=== PATIENT | female | born 1990 | race Two or more races ===

== ENCOUNTER 2016-11-14 15:55 | Observation (INO) | payer MEDICAID | END 2016-11-14 17:20 | disposition home or self-care (01) | DRG 566 | LOC: LDRP 15:55 | PROVIDERS: ADMIT Obstetrics & Gynecology; ATTEND Obstetrics & Gynecology | DX: O26.893 Other specified pregnancy related conditions, third trimester (principal); N13.30 Unspecified hydronephrosis; Z3A.00 Weeks of gestation of pregnancy not specified | CPT/HCPCS: 59025; 76818; 81002; G0378 ==

== ENCOUNTER 2021-12-22 16:11 | Emergency (ER) | payer MEDICAID ==
[~2021-12-22] VITALS: Ht 160 cm; Wt 91.0 kg
[~2021-12-22 16:11] MED LIST: PREN-96 PO
[2021-12-22] MEDS ORDERED: KETOROLAC TROMETH 60MG/2ML VIAL IM ONE (17:00)
[2021-12-22 17:27] VITALS: BP 146/91
== END 2021-12-22 17:32 | disposition home or self-care (01) ==
LOC: ER 16:14
DX: F41.9 Anxiety disorder, unspecified (principal)
CPT/HCPCS: 93005; 96372; 99283; J1885

== ENCOUNTER 2023-08-09 21:11 | Inpatient (IN) | payer MEDICAID ==
[~2023-08-09] VITALS: Ht 157.5 cm; Wt 97.5 kg
[2023-08-09] MEDS ORDERED: BUTORPHANOL TARTRATE 2 MG/1 ML VIAL IV PRN ×2 (21:30)
[2023-08-09] MEDS ORDERED: LIDOCAINE 2%HCL (LOCAL ANESTH.) INJ 20ML MDV IJ PRN (21:30)
[2023-08-09] MEDS: LACTATED RINGER'S 1,000 ML IV SCH (22:25)
[2023-08-09 22:31] LABS: Basophils # (auto) 0 10 ^3/uL (0-0.2); Basophils % (auto) 0.4 % (0.0-2.0); Eosinophils # (auto) 0.1 10 ^3/uL (0-0.8); Eosinophils % (auto) 0.6 % (0.0-7.0); Hematocrit 33.7 % (36.0-46.0); Hemoglobin 11.3 g/dL (12.2-16.2); Lymphocytes # (auto) 2.2 10 ^3/uL (0.4-5.4); Lymphocytes % (auto) 25.4 % (10.0-50.0); Mean Corpuscular Hemoglobin 27.3 pg (28.0-32.0); Mean Corpuscular Hgb Conc. 33.5 g/dL (32.0-36.0); Mean Corpuscular Volume 81.4 fL (80.0-100.0); Monocytes # (auto) 0.7 10 ^3/uL (0-1.3); Monocytes % (auto) 7.6 % (0.0-12.0); Neutrophils # (auto) 5.6 10 ^3/uL (1.6-8.6); Nucleated Red Blood Cells % 0.1 %; Red Blood Cells 4.14 10^6/uL (4.0-5.20); Red Cell Distribution Width 14.5 % (11.8-14.3); White Blood Cell 8.5 10^3/uL (4.4-10.8)
[2023-08-09 22:37] LABS: Urine Bacteria FEW /hpf (None Seen); Urine Blood 1+ /uL (Negative); Urine Clarity Turbid (Clear); Urine Color Yellow (Yellow); Urine Mucus FEW (None Seen); Urine Protein, UAD TRACE (Negative); Urine Specific Gravity 1.026 (1.001-1.035); Urine Urobilinogen Normal (Negative); Urine WBC 14 /hpf (0 - 5); Urine pH 6.5 (5.0-9.0)
[2023-08-09 22:38] LABS: Alanine Aminotransferase 39 U/L (7-40); Albumin 3.5 g/dL (3.2-4.8); Alkaline Phosphatase 174 U/L (46-116); Anion Gap 11 (5-15); Aspartate Aminotransferase 45 U/L (13-40); BUN/Creatinine Ratio 13.2 (10.0-20.0); Blood Urea Nitrogen 7 mg/dL (9-23); Calcium 8.8 mg/dL (8.5-10.1); Carbon Dioxide 19 mmol/L (20-30); Chloride 107 mmol/L (98-107); Glucose 119 mg/dL (74-106); Potassium 3.7 mmol/L (3.5-5.1); Sodium 137 mmol/L (136-145)
[2023-08-09 22:39] LABS: Bilirubin, Total 0.2 mg/dL (0.2-1.0); Total Protein 5.8 g/dL (5.7-8.2)
[2023-08-09 22:41] LABS: Amphetamine Screen, Urine Neg (NEGATIVE); Barbiturate Scree,Urine Neg (NEGATIVE); Benzodiazephine Screen, Urine Neg (NEGATIVE); Cocaine Screen, Urine Neg (NEGATIVE); Opiate Scree,Urine Neg (NEGATIVE)
[2023-08-09 22:42] LABS: Cannabinoid Screen, Urine Neg (NEGATIVE); Phencyclidine Screen, Urine Neg (NEGATIVE)
[2023-08-09] MEDS: miSOPROStol 50 MCG per PRE-CUT 1/2 TAB PO PRN (23:00)
[2023-08-09 23:06] LABS: INR 0.98 (0.9-1.15); Partial Thromboplastin Time 26.5 SEC (24.5-34.5); Prothrombin Time 10.3 sec (9.3-11.8)
[2023-08-10] MEDS: PHISODERM TOP SOLN 240ML BTL TOP PRN (04:33)
[2023-08-10] MEDS: WITCH HAZEL-GLYCERIN PAD TOP PRN (04:33)
[2023-08-10] MEDS: DERMOPLAST 60ML BOTTLE TOP PRN (04:34)
[2023-08-10] MEDS: LACTATED RINGER'S 500 ML IV ONE (19:30)
[2023-08-10] MEDS: NALOXONE HCL 0.4 MG/ML VIAL IV ONE (19:30)
[2023-08-10] MEDS: LIDOCAINE HCL 2 %PF INJ 10ML AMP IJ ONE (19:30)
[2023-08-10] MEDS: ROPIVACAINE HCL 200 ML ONE (20:11)
[2023-08-11] VITALS (16 sets, daily range): BP systolic 105–120; BP diastolic 62–80; PULSE 77–101; RESP 14–18; TEMP 98.2–98.8; O2SAT 95–100
[2023-08-11] MEDS: LACT. RINGERS/OXYTOCIN 20UNITS 500 ML IV ONE ×2 (01:15→01:45)
[2023-08-11] MEDS ORDERED: TERBUTALINE SULFATE 1 MG/ML 1ML VIAL SC PRN (01:15)
[2023-08-11] MEDS: LACT. RINGERS/OXYTOCIN 20UNITS 1,000 ML IV SCH (01:41)
[2023-08-11] MEDS: ePHEDrine SULFATE 50 MG/ML AMP IV ONE ×2 (05:23→05:45)
[2023-08-11] MEDS ORDERED: ONDANSETRON HCL 4 MG/2 ML VIAL IV PRN ×2 (06:45→08:45)
[2023-08-11] MEDS ORDERED: MORPHINE SULFATE 4 MG/ML SYR/VIAL IV PRN (06:45)
[2023-08-11] MEDS: NS/OXYTOCIN 20UNITS 1,000 ML IV SCH (06:45)
[2023-08-11] MEDS ORDERED: SODIUM BICARB 8.4% 50Meq/50ml SYR Vial IV ONE (06:57)
[2023-08-11] MEDS ORDERED: oxyTOCIN 10 UNIT/ML 10ML VIAL ONE (06:57)
[2023-08-11] MEDS ORDERED: ONDANSETRON HCL 4 MG/2 ML VIAL ONE (06:58)
[2023-08-11] MEDS ORDERED: DexAMETHasone SOD PHOS 10MG/1ML VIAL INJ ONE (06:58)
[2023-08-11] MEDS ORDERED: KETOROLAC TROMETH 30 MG/ML 1ML VIAL ONE (06:58)
[2023-08-11] MEDS ORDERED: LIDOCAINE 2% (LOCAL ANESTH.) PF 5ml SDV ONE (07:00)
[2023-08-11] MEDS ORDERED: MORPHINE SULF PF 5 MG/10 ML VIAL ONE (07:00)
[2023-08-11] MEDS ORDERED: fentaNYL CITRATE 100 MCG/2 ML VL ONE (07:01)
[2023-08-11] MEDS ORDERED: EPINEPHrine HCL 1 MG/1 ML AMP ONE (07:01)
[2023-08-11] MEDS: ceFAZolin 2 GM/D5W50ml 50 ML IV ONE (07:15)
[2023-08-11] MEDS ORDERED: ePHEDrine SULFATE 50 MG/ML AMP ONE (07:37)
[2023-08-11] MEDS ORDERED: PHENYLEPHRINE HCL 10 MG/ML VL ONE (07:37)
[2023-08-11] MEDS ORDERED: KETOROLAC TROMETH 30 MG/ML 1ML VIAL IV PRN (08:45)
[2023-08-11] MEDS: ONDANSETRON HCL 4 MG/2 ML VIAL IV ONE (08:45)
[2023-08-11] MEDS ORDERED: HYDROmorphone HCL 2 MG/ML VL/or syr IV PRN ×2 (08:45)
[2023-08-11] MEDS: NALBUPHINE HCL 10 MG/1ml INJECTION SUBCUT ONE (08:45)
[2023-08-11] MEDS ORDERED: diphenhdrAMINE HCL 50 MG/1 ML VL IV PRN (08:45)
[2023-08-11] MEDS ORDERED: NALOXONE HCL 0.4 MG/ML VIAL IV PRN (08:45)
[2023-08-11] MEDS ORDERED: MEPERIDINE HCL (25 MG/ML) 1ML VIAL IV PRN (08:45)
[2023-08-11] MEDS ORDERED: DexAMETHasone SOD PHOS 10MG/1ML VIAL INJ IV PRN (08:45)
[2023-08-11] MEDS ORDERED: ceFAZolin 1GM/50ML 50 ML IV SCH (14:45)
[2023-08-11] MEDS: ceFAZolin 1GM/50ML 50 ML IV SCH (15:12)
[2023-08-11] MEDS: ACETAMINOPHEN IV 1000 MG/100ML (10MG/ML) IV PRN (15:13)
[2023-08-12] VITALS (13 sets, daily range): BP systolic 97–123; BP diastolic 61–82; PULSE 90–106; RESP 14–17; TEMP 97.8–98.9; O2SAT 95–97
[2023-08-12] MEDS: HYDROcodone-ACET 5/325MG TAB PO PRN (04:15)
[2023-08-12 07:04] LABS: Basophils # (auto) 0 10 ^3/uL (0-0.2); Basophils % (auto) 0.2 % (0.0-2.0); Eosinophils # (auto) 0 10 ^3/uL (0-0.8); Eosinophils % (auto) 0.3 % (0.0-7.0); Lymphocytes # (auto) 2.2 10 ^3/uL (0.4-5.4); Monocytes % (auto) 9.3 % (0.0-12.0); Neutrophils # (auto) 7.6 10 ^3/uL (1.6-8.6)
[2023-08-12 07:06] LABS: Hematocrit 26.2 % (36.0-46.0); Hemoglobin 8.8 g/dL (12.2-16.2); Mean Corpuscular Hemoglobin 27.2 pg (28.0-32.0); Mean Corpuscular Hgb Conc. 33.4 g/dL (32.0-36.0); Mean Corpuscular Volume 81.4 fL (80.0-100.0); Neutrophils % (auto) 70.2 % (37.0-80.0); Nucleated Red Blood Cells % 0.1 %; Red Blood Cells 3.22 10^6/uL (4.0-5.20); Red Cell Distribution Width 14.2 % (11.8-14.3); White Blood Cell 10.8 10^3/uL (4.4-10.8)
[2023-08-12] MEDS: ACETAMINOPHEN IV 1000 MG/100ML (10MG/ML) IV PRN (10:32)
[2023-08-12] MEDS ORDERED: HYDROcodone-ACET 5/325MG TAB PO PRN ×2 (11:00)
[2023-08-12] MEDS ORDERED: BISACODYL 10 MG RECT SUPP PR PRN (11:00)
[2023-08-12] MEDS: IBUPROFEN 800 MG TAB PO PRN (11:27)
[2023-08-12] MEDS ORDERED: DOCU-94 PO (11:50)
[2023-08-12] MEDS ORDERED: CEPH250C PO (11:50)
[2023-08-12] MEDS ORDERED: HYDR-4902 PO (11:50)
[2023-08-12] MEDS: SIMETHICONE 80 MG CHEWABLE TABLET PO SCH (12:05)
[2023-08-12] MEDS: DOCUSATE SOD 100 MG CAP PO SCH (22:39)
[2023-08-13 03:00] VITALS: BP 99/62; PULSE 92; RESP 17; TEMP 97.9; O2SAT 96
[2023-08-13 05:07] LABS: RPR Non Reactive (Non Reactive)
[2023-08-13 07:00] VITALS: BP 102/66; PULSE 85; RESP 18; TEMP 98.6; O2SAT 97
[2023-08-13] MEDS: HYDROcodone-ACET 5/325MG TAB PO PRN (08:02)
[2023-08-13] MEDS: DOCUSATE CALCIUM 240 MG CAP PO SCH (09:53)
[2023-08-13 11:22] VITALS: BP 115/74; PULSE 93; RESP 16; TEMP 98.7; O2SAT 97
[2023-08-13 15:12] VITALS: BP 118/72; PULSE 88; RESP 16; TEMP 98.2; O2SAT 97
[2023-08-13 19:06] LABS: Treponema pallidum Ab (FTA-Ab) Non Reactive (Non Reactive)
== END 2023-08-13 17:50 | disposition home or self-care (01) | DRG 540 ==
LOC: LDRP 21:11
PROVIDERS: ADMIT Obstetrics & Gynecology; ATTEND Obstetrics & Gynecology
PROC: 10D00Z1 Extraction of Products of Conception, Low, Open Approach (ICD-10-PCS; principal; 2023-08-11 07:32)
DX: O61.9 Failed induction of labor, unspecified (principal); R71.0 Precipitous drop in hematocrit; O76 Abnormality in fetal heart rate and rhythm complicating labor and delivery; O48.0 Post-term pregnancy; O62.2 Other uterine inertia; Z3A.40 40 weeks gestation of pregnancy; Z37.0 Single live birth
CPT/HCPCS: 36415; 59025; 62282; 80053; 80307; 81001; 81002; 85025; 85610; 85730; 86592; 86850; 86900; 86901; 94760; 94762; 96360; 96361; 96365; 96366; 96374; 96375; G0378; J0131; J0171; J1100; J1885; J2001; J2405; J2590